=== PATIENT | female | born 1980 | race Caucasian/White ===

== ENCOUNTER → 2016-08-07 | Outpatient (CLI) | payer BC ==
--- NOTE | 2016-08-07 14:34 | MA ---
Diagnostic Digital Mammogram left Breast Clinical Indications: Follow up possible asymmetric density left breast. Cousin with history of breas t cancer at age 38 Technique: Compression was obtained in CC, mediolateral oblique, and 90-degree lateral views of the left breast. This examination is processed by the [employer] computer-aided detection system. Comparison: Baseline study from July 25, 2016. Breast density: B; There are scattered areas of fibroglandular density. Findings: CAD was reviewed. The density of concern appears to represent normal overlapping breast parenchymal tissue. No signifi cant abnormality seen. However, an underlying nodule could potentially be obscured by the dense breas t tissue in this region. Impression: Benign findings. BI-RADS 2. However, a nodule could be obscured by the dense breast tissu e in this region. Subsequent ultrasound was performed for further characterization.
--- NOTE | 2016-08-07 15:15 | US ---
Ultrasound left breast 1439 hours. History: Possible focal asymmetry upper outer left breast at mammography. Cousin with history of jacque [address] cancer at age 38. Findings: Ultrasound of the upper outer left breast demonstrates normal dense underlying breast paren chymal tissue in the center similar pattern to the mammographic study without evidence of underlying solid or cystic mass. Impression: Benign findings ultrasound upper outer left breast. BI-RADS 2 Without a first degree relative with history of premenopausal breast cancer, [employer] recommends routine annual mammogram to begin at age 40 unless clinically indicated to perfo rm earlier. The results of this study were reviewed with the patient.
== END ==
LOC: FIMAGING 14:01
PROVIDERS: ATTEND Midwife
DX: R92.8 Other abnormal and inconclusive findings on diagnostic imaging of breast (principal)
CPT/HCPCS: 76641; G0206

== ENCOUNTER → 2017-03-03 | Outpatient (CLI) | payer MEDICAID | LOC: BMCIMAGING 13:45 | PROVIDERS: ATTEND Emergency Medicine | DX: R22.43 Localized swelling, mass and lump, lower limb, bilateral (principal) ==

== ENCOUNTER → 2017-11-03 | Outpatient (CLI) | payer MEDICAID | LOC: FIMAGING 13:55 | PROVIDERS: ATTEND Obstetrics & Gynecology | DX: O09.511 Supervision of elderly primigravida, first trimester (principal); O99.211 Obesity complicating pregnancy, first trimester; E66.9 Obesity, unspecified; Z68.33 Body mass index [BMI] 33.0-33.9, adult; Z3A.12 12 weeks gestation of pregnancy ==